=== PATIENT | male | born 1980 | race Caucasian/White ===

== ENCOUNTER → 2019-03-13 | Outpatient (CLI) | payer BC ==
--- NOTE | 2019-03-13 09:53 | Diagnostic Imaging Report ---
PROCEDURE: CT sinuses without contrast TECHNIQUE: Multiple contiguous axial images were obtained through the sinuses without the use of intravenous contrast. Coronal and sagittal reformations were then performed. Auto Exposure Controls were utilized during the CT exam to meet ALARA standards for radiation dose reduction. INDICATION: Headache and sinusitis. FINDINGS: The frontal sinuses are clear. The ethmoid air cells and sphenoid sinuses are clear. There is some nodular-like mucosal thickening in the maxillary sinuses bilaterally. The ostiomeatal complexes are widely patent. There are small bilateral mikel bullosa. There is mild tortuosity of the nasal septum. The globes and intraorbital structures are unremarkable. The nasopharyngeal soft tissues are symmetrical without mass effect. IMPRESSION: Mild nodular mucosal thickening in the maxillary sinuses bilaterally, left greater than right. Small bilateral mikel bullosa. Dictated by: Dictated on workstation # [id number]
== END ==
LOC: RAD FS 09:09
PROVIDERS: ATTEND Family Medicine
DX: J32.0 Chronic maxillary sinusitis (principal)
CPT/HCPCS: 70486